=== PATIENT | male | born 1945 | race Caucasian/White ===

== ENCOUNTER 2019-01-18 21:37 | Emergency (ER) | payer MEDICARE ==
--- NOTE | 2019-01-18 22:57 | ED Physician Chart ---
ED Chief Complaint/HPI - Patient Information Date Seen:: 01/18/19 Time Seen:: 22:48 Chief Complaint:: shoulder pain History of Present Illness:: 73 yr old male from [place] dementia pneumonia protein calorie malnutrition addisons dz anemia Allergies:: Allergies Allergy/AdvReac Type Severity Reaction Status Date / Time No Known Allergies Allergy Verified 01/18/19 21:47 Vitals:: Vital Signs - 8 hr 01/18/19 21:40 Temp 98.0 F HR 72 RR 18 BP 106/62 O2 Sat % 98 ED Review of Systems - Review of Systems Skin: No skin lesions Head: No headache Eyes: No loss of vision ENT: No earache Neck: No neck pain Cardio Vascular: No chest pain Pulmonary: No SOB GI: No nausea, No vomiting G/U: No dysuria Endocrine: No polyuria Psychiatric: No depression Hematopoietic: No bruising Allergic/Immuno: No urticaria Neurological: No syncope ED Septic Shock - . Is Septic Shock (SBP<90, OR Lactate>4 mmol\L) present?: No - <6hrs of presentation: Vital Signs: Vital Signs - 8 hr 01/18/19 21:40 Temp 98.0 F HR 72 RR 18 BP 106/62 O2 Sat % 98 ED Reassessment (Disposition) - Reassessment Reassessment:: shoulder pains malnutrition - Diagnosis Diagnosis:: malnutrition - Patient Disposition Discharge/Transfer:: Acute Care w/in this hosp Admitted to:: Med/Surg Condition at Disposition:: Stable
[2019-01-18 23:21] LABS: % BASOPHILS 1.9 % (0.0-2.0); % EOSINOPHILS 4.8 % (0.0-5.0); % MONOCYTES 9.4 % (2.0-10.0); % NEUTROPHILS 59.9 % (40.0-80.0); BASOPHILE ABSOLUTE 0.2 Th/cumm (0-0.2); EOSINOPHILE ABSOLUTE 0.5 Th/cmm (0.1-0.4); HEMATOCRIT 38.9 % (41.0-60); HEMOGLOBIN 12.9 gm/dL (12-16); LYMPHOCYTE ABSOLUTE 2.4 Th/cmm (1.5-3.0); MEAN CELL VOLUME 91.5 fl (80-99); MEAN CORPUSCULAR HEMOGLOBIN 30.3 pg (27.0-31.0); MEAN CORPUSCULAR HGB CONC 33.1 pg (28.0-36.0); MEAN PLATELET VOLUME 7.4 fl; MONOCYTE ABSOLUTE 0.9 Th/cmm (0.3-1.0); PLATELET COUNT 349 Th/cmm (150-400); RED BLOOD COUNT 4.25 Mil/cmm (3.80-5.80); RED CELL DISTRIBUTION WIDTH 16.4 % (11.5-20.0)
[2019-01-18 23:42] LABS: ALB/GLOB RATIO 1.7 (1.0-1.8); ALKALINE PHOSPHATASE 76 U/L (34-104); ANION GAP 11.9 (7.0-16.0); BILIRUBIN,TOTAL 0.3 mg/dL (0.3-1.0); BUN - UREA NITROGEN 27 mg/dL (7-25); CALCIUM SERUM 9.4 mg/dL (8.6-10.3); CARBON DIOXIDE 26.9 mEq/L (21.0-31.0); CHLORIDE 103 mEq/L (98-107); CREATININE - SERUM 0.8 mg/dL (0.7-1.3); GLUCOSE 111 mg/dL (70-105); POTASSIUM SERUM 3.8 mEq/L (3.5-5.1); SGOT 13 U/L (13-39); SGPT/ALT 7 U/L (7-52); SODIUM SERUM 138 mEq/L (136-145); TOTAL PROTEIN,SERUM 6.4 gm/dL (6.0-8.3)
--- NOTE | 2019-01-19 08:01 | Diagnostic Imaging Report ---
Exam: Right shoulder joint. HISTORY: Pain Prior exam: None Findings: Multiple views of right shoulder joint demonstrate no evidence of fracture or dislocation. The acromioclavicular joint is intact. IMPRESSION: Normal examination right shoulder joint.
--- NOTE | 2019-01-19 08:02 | Diagnostic Imaging Report ---
Exam: Left shoulder joint HISTORY: Pain Findings: Multiple views of left shoulder joint demonstrate no evidence of fracture dislocation. The acromioclavicular joint is intact. IMPRESSION: Essentially unremarkable examination left shoulder joint.
== END 2019-01-19 02:46 | disposition left against medical advice (07) ==
LOC: ER 21:37
DX: E46 Unspecified protein-calorie malnutrition (principal); G89.29 Other chronic pain; M25.511 Pain in right shoulder; M25.512 Pain in left shoulder; F03.90 Unspecified dementia, unspecified severity, without behavioral disturbance, psychotic disturbance, mood disturbance, and anxiety
CPT/HCPCS: 36415-UA; 73030-TC-LT; 73030-TC-RT; 80053-TC; 85025-TC; Z7502